=== PATIENT | male | born 1955 | race Caucasian/White ===

== ENCOUNTER 2017-07-21 14:45 | Inpatient (IN) | payer OTHER, MEDICAID ==
[~2017-07-21] VITALS: Ht 175.3 cm; Wt 88.8 kg
[~2017-07-21 14:45] MED LIST: ALBU8.5H8 INH; ASPI81TA30 PO; CLOP75TA33 PO; HYDR-3972 PO; LEVO112T5 PO; METO100T7 PO; NITR0.4T51 SL; QUET25TA PO; TOPI50TA24 PO
[2017-08-05] MEDS ORDERED: METF500T4 PO (15:27)
[2017-08-05 15:58] LABS: BASOPHILS % (AUTO) 0.4 % (0-1); EOSINOPHILS # (AUTO) 0.1 X10'3 (0-0.9); LYMPHOCYTES # (AUTO) 1.4 X10'3 (1.1-4.8); LYMPHOCYTES % (AUTO) 25.2 % (21-51); MEAN CORPUSCULAR HEMOGLOBIN 32.8 PG (27.0-31.0); MEAN CORPUSCULAR HGB CONC 35.1 % (33.0-36.5); MEAN CORPUSCULAR VOLUME 93.3 FL (78-98); MONOCYTES # (AUTO) 0.5 X10'3 (0-0.9); MONOCYTES % (AUTO) 8.4 % (2-12); NEUTROPHILS # (AUTO) 3.6 X10'3 (1.8-7.7); PRE OP HEMATOCRIT 43.1 % (42.0-52.0); PRE OP HEMOGLOBIN 15.1 g/dL (14.0-17.9); PRE OP PLATELET COUNT 109 X10'3 (140-440); RED BLOOD COUNT 4.62 X10'6 (4.70-6.10); RED CELL DISTRIBUTION WIDTH 14.7 % (11.5-14.5)
[2017-08-05 16:14] LABS: ALBUMIN 3.8 G/DL (3.4-5.0); ALBUMIN/GLOBULIN RATIO 0.9 (1.1-1.5); ALKALINE PHOSPHATASE 100 IU/L (46-116); BLOOD UREA NITROGEN 13 MG/DL (7-18); BUN/CREATININE RATIO 14.4 (5.4-32.0); CALCIUM 9.2 MG/DL (8.5-10.1); CHLORIDE 107 MMOL/L (99-107); PRE OP ALT 39 U/L (30-65); PRE OP ANION GAP 9 (8-16); PRE OP AST 52 U/L (10-37); PRE OP BILIRUB, TOTAL 1.3 MG/DL (0.0-1.0); PRE OP GLUCOSE 110 MG/DL (70-104); PRE OP POTASSIUM 3.9 MMOL/L (3.4-5.1); PRE OP SODIUM 141 MMOL/L (135-145); TOTAL CARBON DIOXIDE 24.8 MMOL/L (24-32); eGFR 86 ML/MIN
[2017-08-05 16:27] LABS: PRE OP INR 1.2 INR
[2017-08-11] VITALS (17 sets, daily range): BP systolic 90–133; BP diastolic 55–78
[2017-08-11] MEDS ORDERED: ringers solution, lacted 1,000 ML IV SCH ×2 (05:00→11:05)
[2017-08-11] MEDS ORDERED: DOCUMENT DATE & TIME OF BETA-BLOCKER PO ONE (05:30)
[2017-08-11] MEDS ORDERED: famotidine 20mg tablet PO ONE (05:30)
[2017-08-11] MEDS ORDERED: cefazolin/dext.iso 2gm/50ml 50 ML IV ONE (06:51)
[2017-08-11] MEDS ORDERED: tranexamic acid inj. 1,000 MG in normal saline 100ml IV soln 90 ML IV ONE ×2 (06:55→09:55)
[2017-08-11] MEDS ORDERED: vancomycin/NS 1 GM ADD-VANTAGE 250 ML IV ONE (06:55)
[2017-08-11] MEDS ORDERED: ROPIVAcaine 0.5% (5mg/ml) 30ml vial ONE ×2 (08:30→08:38)
[2017-08-11] MEDS ORDERED: tetracaine 1% (10mg/ml) pres. free inj. ONE (08:31)
[2017-08-11] MEDS ORDERED: fentaNYL/PF 50MCG/1 ML 2ML syringe ONE (08:35)
[2017-08-11] MEDS ORDERED: MIDAZolam 1mg/ml 10ml vial ONE (08:35)
[2017-08-11] MEDS ORDERED: MORPHINE SULFATE/PF 0.5 MG/ML 10ML AMPUL ONE (08:35)
[2017-08-11] MEDS ORDERED: ketorolac trometh. 30mg/ml inj. ONE (08:38)
[2017-08-11] MEDS ORDERED: vancomycin 1,000mg inj ONE (08:38)
[2017-08-11] MEDS ORDERED: labetalol 5mg/ml 20ml inj. IV PRN (11:05)
[2017-08-11] MEDS ORDERED: ondansetron/PF 4mg/2ml inj IV PRN ×3 (11:05→13:30)
[2017-08-11] MEDS ORDERED: hydrALAZINE 20mg/ml inj. IV PRN (11:05)
[2017-08-11] MEDS ORDERED: morphine 2 MG/ML inj. syringe IV PRN ×3 (11:05→17:21)
[2017-08-11] MEDS ORDERED: meperidine/PF 25mg/ml syringe IV PRN ×2 (11:05)
[2017-08-11] MEDS ORDERED: diphenhydrAMINE 50 mg/ml inj IV PRN (11:10)
[2017-08-11] MEDS ORDERED: nitroGLYCERIN 0.4mg SUBLingual tab SL PRN (13:30)
[2017-08-11] MEDS ORDERED: magnesium hydroxide 30ml (MOM) UD suspension PO PRN (13:30)
[2017-08-11] MEDS ORDERED: acetaminophen 325mg tablet PO PRN (13:30)
[2017-08-11] MEDS ORDERED: non-formulary drug (Albuterol Sulfate (Proair Hfa) 2 PUFFS) INH SCH (13:30)
[2017-08-11] MEDS ORDERED: bisacodyl 10mg suppository rectal RC PRN (13:30)
[2017-08-11] MEDS ORDERED: HYDROmorphone 1 mg/ml syringe IV PRN (13:30)
[2017-08-11] MEDS ORDERED: oxyCODONE IR 5mg (immed. release) tablet PO PRN ×2 (13:30)
[2017-08-11] MEDS ORDERED: diphenhydrAMINE 25mg capsule PO PRN ×2 (13:30)
[2017-08-11] MEDS ORDERED: albuterol 2.5 MG/3 ML nebule NEB PRN (13:40)
[2017-08-11] MEDS: acetaminophen 325mg tablet PO SCH ×2 (14:43→20:13)
[2017-08-11] MEDS: ketorolac tromethamine 15mg/ml inj. IV SCH ×2 (14:43→20:14)
[2017-08-11] MEDS: potassium cl 20mEq in 1/2 NS 1,000 ML IV SCH ×2 (14:43→21:27)
[2017-08-11] MEDS: cefazolin 1gm/NS 100mL 100 ML IV SCH (16:13)
[2017-08-11] MEDS ORDERED: tranexamic acid inj. 1,000 MG in normal saline 100ml IV soln 100 ML IV ONE (16:30)
[2017-08-11] MEDS ORDERED: celeCOXIB 100mg capsule PO SCH (20:00)
[2017-08-11] MEDS ORDERED: vancomycin/NS 1 GM ADD-VANTAGE 250 ML IV SCH (20:00)
[2017-08-11] MEDS: metFORMIN 500mg tablet PO SCH (20:13)
[2017-08-11] MEDS ORDERED: HYDROcodone/acetaminophen 10/325mg tab PO PRN (20:30)
[2017-08-11] MEDS: HYDROcodone/acetaminophen 10/325mg tab PO PRN (20:39)
[2017-08-11] MEDS ORDERED: sennosides 8.6mg tablet PO SCH (21:00)
[2017-08-11] MEDS ORDERED: topiramate 25mg tablet PO SCH (21:00)
[2017-08-11] MEDS ORDERED: TOPIRAMATE PO SCH (21:00)
[2017-08-11] MEDS ORDERED: QUEtiapine 25mg tablet PO SCH (21:00)
[2017-08-11] MEDS ORDERED: gabapentin 300mg capsule PO SCH (21:00)
[2017-08-12] MEDS: cefazolin 1gm/NS 100mL 100 ML IV SCH (00:53)
[2017-08-12] MEDS: ketorolac tromethamine 15mg/ml inj. IV SCH ×2 (01:07→08:16)
[2017-08-12] MEDS: HYDROcodone/acetaminophen 10/325mg tab PO PRN ×2 (01:10→05:13)
[2017-08-12] MEDS: potassium cl 20mEq in 1/2 NS 1,000 ML IV SCH (01:17)
[2017-08-12 02:32] VITALS: BP 92/52
[2017-08-12 05:00] VITALS: BP 104/65
[2017-08-12 06:14] LABS: BASOPHILS % (AUTO) 0.4 % (0-1); EOSINOPHILS % (AUTO) 0.7 % (0-6); HEMATOCRIT 33.2 % (42.0-52.0); HEMOGLOBIN 11.7 g/dl (14.0-17.9); LYMPHOCYTES # (AUTO) 0.4 X10'3 (1.1-4.8); LYMPHOCYTES % (AUTO) 7.2 % (21-51); MEAN CORPUSCULAR HEMOGLOBIN 32.9 PG (27.0-31.0); MEAN CORPUSCULAR HGB CONC 35.2 % (33.0-36.5); MEAN CORPUSCULAR VOLUME 93.5 FL (78-98); MEAN PLATELET VOLUME 8.6 FL (7.4-10.4); MONOCYTES # (AUTO) 0.3 X10'3 (0-0.9); MONOCYTES % (AUTO) 4.9 % (2-12); NEUTROPHILS # (AUTO) 5.3 X10'3 (1.8-7.7); NEUTROPHILS % (AUTO) 86.8 % (42-75); PLATELET COUNT 87 X10'3 (140-440); RED BLOOD COUNT 3.55 X10'6 (4.70-6.10); RED CELL DISTRIBUTION WIDTH 14.6 % (11.5-14.5); WHITE BLOOD COUNT 6.1 X10'3 (4.5-11.0)
[2017-08-12 06:32] LABS: ANION GAP 9 (8-16); CHLORIDE 106 MMOL/L (99-107); POTASSIUM 4.4 MMOL/L (3.5-5.1); SODIUM 139 MMOL/L (135-145); TOTAL CARBON DIOXIDE 23.9 MMOL/L (24-32)
[2017-08-12] MEDS ORDERED: metoprolol succinate 25mg (24-HOUR) SR. Tablet PO SCH (08:00)
[2017-08-12] MEDS ORDERED: clopidogrel 75mg tablet PO SCH (08:00)
[2017-08-12] MEDS ORDERED: levoTHYROXINE 112mcg tablet PO SCH (08:00)
[2017-08-12] MEDS ORDERED: non-formulary drug (Metoprolol Succinate* (Toprol Xl*) 1 TAB) PO SCH (08:00)
[2017-08-12] MEDS: metFORMIN 500mg tablet PO SCH (08:16)
[2017-08-12] MEDS ORDERED: aspirin 81mg tab.chew PO SCH (08:30)
[2017-08-12] MEDS ORDERED: aspirin 325mg tablet PO SCH (08:30)
[2017-08-12 10:00] VITALS: BP 97/48
[2017-08-12] MEDS ORDERED: HYDR-3972 PO (10:53)
[2017-08-13] MEDS ORDERED: acetaminophen 325mg tablet PO PRN (13:30)
[2017-08-15] MEDS ORDERED: HYDR-565 PO (22:20)
== END 2017-08-12 12:20 | disposition home or self-care (01) | DRG 470 ==
LOC: PAS IN 08-11 06:41 → ORTHO 4S 08-11 14:34 → EDSTATUS 08-11 15:15
PROVIDERS: ADMIT Orthopaedic Surgery; ATTEND Orthopaedic Surgery
PROC: 3E0T3BZ Introduction of Anesthetic Agent into Peripheral Nerves and Plexi, Percutaneous Approach (ICD-10-PCS; 2017-08-11)
PROC: 8E0YXBZ Computer Assisted Procedure of Lower Extremity (ICD-10-PCS; 2017-08-11)
PROC: 8E0Y0CZ Robotic Assisted Procedure of Lower Extremity, Open Approach (ICD-10-PCS; 2017-08-11)
PROC: 0SRD0JZ Replacement of Left Knee Joint with Synthetic Substitute, Open Approach (ICD-10-PCS; principal; 2017-08-11 09:55)
DX: M17.12 Unilateral primary osteoarthritis, left knee (principal); D62 Acute posthemorrhagic anemia; E03.9 Hypothyroidism, unspecified; E11.9 Type 2 diabetes mellitus without complications; I25.10 Atherosclerotic heart disease of native coronary artery without angina pectoris; J44.9 Chronic obstructive pulmonary disease, unspecified; F32.9 Major depressive disorder, single episode, unspecified; F41.9 Anxiety disorder, unspecified; G89.29 Other chronic pain; M54.9 Dorsalgia, unspecified; F17.200 Nicotine dependence, unspecified, uncomplicated; I25.2 Old myocardial infarction; Z95.5 Presence of coronary angioplasty implant and graft; Z88.0 Allergy status to penicillin; Z88.8 Allergy status to other drugs, medicaments and biological substances; Z79.84 Long term (current) use of oral hypoglycemic drugs; Z79.899 Other long term (current) drug therapy; Z79.01 Long term (current) use of anticoagulants; Z83.3 Family history of diabetes mellitus; Z82.49 Family history of ischemic heart disease and other diseases of the circulatory system; Z80.9 Family history of malignant neoplasm, unspecified
CPT/HCPCS: 36415; 80051; 80053; 82948; 85025; 85610; 85730; 87070; 97110; 97116; 97161; 97530; A6455; A7000; C1713; C1758; C1776; J0690; J1885; J2250; J2274; J2405; J2795; J3010; J3370; J7030; J7120

== ENCOUNTER 2017-09-01 19:48 | Emergency (ER) | payer OTHER, MEDICAID ==
[~2017-09-01] VITALS: Ht 175.3 cm; Wt 88.6 kg
[~2017-09-01 19:48] MED LIST changes: +METF500T4 PO
[2017-09-01] MEDS ORDERED: ondansetron/PF 4mg/2ml inj IV ONE (21:15)
[2017-09-01] MEDS ORDERED: morphine 4 MG/ML inj SYRINge IV ONE (21:15)
[2017-09-01 21:50] LABS: BASOPHILS % (AUTO) 0.8 % (0-1); EOSINOPHILS # (AUTO) 0.1 X10'3 (0-0.9); EOSINOPHILS % (AUTO) 2.1 % (0-6); HEMOGLOBIN 11.1 g/dl (14.0-17.9); LYMPHOCYTES # (AUTO) 1.5 X10'3 (1.1-4.8); LYMPHOCYTES % (AUTO) 26.4 % (21-51); MEAN CORPUSCULAR HEMOGLOBIN 32.8 PG (27.0-31.0); MEAN CORPUSCULAR HGB CONC 34.7 % (33.0-36.5); MEAN CORPUSCULAR VOLUME 94.6 FL (78-98); MONOCYTES # (AUTO) 0.5 X10'3 (0-0.9); MONOCYTES % (AUTO) 9.5 % (2-12); NEUTROPHILS # (AUTO) 3.4 X10'3 (1.8-7.7); NEUTROPHILS % (AUTO) 61.2 % (42-75); PLATELET COUNT 231 X10'3 (140-440); RED BLOOD COUNT 3.38 X10'6 (4.70-6.10); RED CELL DISTRIBUTION WIDTH 15.4 % (11.5-14.5); WHITE BLOOD COUNT 5.6 X10'3 (4.5-11.0)
[2017-09-01 22:08] LABS: ALANINE AMINOTRANSFERASE 27 U/L (12-78); ALBUMIN 3.4 G/DL (3.4-5.0); ALBUMIN/GLOBULIN RATIO 0.8 (1.1-1.5); ALKALINE PHOSPHATASE 103 IU/L (46-116); ANION GAP 10 (8-16); ASPARTATE AMINO TRANSFERASE 34 U/L (10-37); BLOOD UREA NITROGEN 13 MG/DL (7-18); BUN/CREATININE RATIO 13.8 (5.4-32.0); CALCIUM 8.9 MG/DL (8.5-10.1); CHLORIDE 107 MMOL/L (99-107); CREATININE 0.94 MG/DL (0.60-1.10); GLUCOSE 151 MG/DL (70-104); POTASSIUM 3.6 MMOL/L (3.5-5.1); SODIUM 142 MMOL/L (135-145); TOTAL PROTEIN 7.9 G/DL (6.4-8.2); eGFR 82 ML/MIN
[2017-09-01] MEDS ORDERED: ketorolac trometh. 30mg/ml inj. IV ONE (22:25)
[2017-09-01] MEDS ORDERED: CLIN-80 PO (22:48)
[2017-09-01 23:06] VITALS: BP 132/72
== END 2017-09-01 23:08 | disposition home or self-care (01) ==
LOC: ER 19:49
DX: L03.116 Cellulitis of left lower limb (principal); I25.10 Atherosclerotic heart disease of native coronary artery without angina pectoris; I25.2 Old myocardial infarction; E11.9 Type 2 diabetes mellitus without complications; F17.200 Nicotine dependence, unspecified, uncomplicated; Z98.890 Other specified postprocedural states; Z96.652 Presence of left artificial knee joint; Z86.19 Personal history of other infectious and parasitic diseases; Z88.5 Allergy status to narcotic agent; Z88.0 Allergy status to penicillin; Z88.8 Allergy status to other drugs, medicaments and biological substances; Z79.82 Long term (current) use of aspirin; Z79.84 Long term (current) use of oral hypoglycemic drugs; Z79.899 Other long term (current) drug therapy
CPT/HCPCS: 36415; 73552; 73564; 73590; 80053; 85025; 96374; 96375; 99285; J1885; J2270; J2405

== ENCOUNTER 2017-09-18 19:01 | Emergency (ER) | payer OTHER, MEDICAID ==
[~2017-09-18] VITALS: Ht 175.3 cm; Wt 83.0 kg
[~2017-09-18 19:01] MED LIST changes: +CLIN-80 PO
[2017-09-18] MEDS ORDERED: HYDROmorphone 2mg tablet PO ONE (21:20)
[2017-09-18 21:55] LABS: BASOPHILS % (AUTO) 0.5 % (0-1); EOSINOPHILS # (AUTO) 0.1 X10'3 (0-0.9); EOSINOPHILS % (AUTO) 1.9 % (0-6); HEMATOCRIT 33.5 % (42.0-52.0); HEMOGLOBIN 11.5 g/dl (14.0-17.9); LYMPHOCYTES # (AUTO) 1.5 X10'3 (1.1-4.8); LYMPHOCYTES % (AUTO) 28.7 % (21-51); MEAN CORPUSCULAR HEMOGLOBIN 32.3 PG (27.0-31.0); MEAN CORPUSCULAR HGB CONC 34.3 % (33.0-36.5); MEAN CORPUSCULAR VOLUME 94.2 FL (78-98); MEAN PLATELET VOLUME 7.3 FL (7.4-10.4); MONOCYTES # (AUTO) 0.5 X10'3 (0-0.9); MONOCYTES % (AUTO) 9.9 % (2-12); PLATELET COUNT 136 X10'3 (140-440); RED BLOOD COUNT 3.56 X10'6 (4.70-6.10); RED CELL DISTRIBUTION WIDTH 14.2 % (11.5-14.5); WHITE BLOOD COUNT 5.1 X10'3 (4.5-11.0)
[2017-09-18 22:07] LABS: INR 1.1 INR; PARTIAL THROMBOPLASTIN TIME 34 SECONDS (22-32); PROTHROMBIN TIME 11.8 SECONDS (9.0-12.0)
[2017-09-18 22:13] LABS: ALANINE AMINOTRANSFERASE 32 U/L (12-78); ALBUMIN 3.3 G/DL (3.4-5.0); ALBUMIN/GLOBULIN RATIO 0.8 (1.1-1.5); ALKALINE PHOSPHATASE 99 IU/L (46-116); ANION GAP 10 (8-16); ASPARTATE AMINO TRANSFERASE 38 U/L (10-37); BILIRUBIN,TOTAL 0.8 MG/DL (0.1-1.0); BLOOD UREA NITROGEN 11 MG/DL (7-18); BUN/CREATININE RATIO 12.8 (5.4-32.0); CALCIUM 8.9 MG/DL (8.5-10.1); CHLORIDE 105 MMOL/L (99-107); CREATININE 0.86 MG/DL (0.60-1.10); GLUCOSE 133 MG/DL (70-104); POTASSIUM 3.5 MMOL/L (3.5-5.1); SODIUM 140 MMOL/L (135-145); TOTAL CARBON DIOXIDE 24.7 MMOL/L (24-32); TOTAL PROTEIN 7.7 G/DL (6.4-8.2); eGFR > 90 ML/MIN
[2017-09-19 00:25] VITALS: BP 122/71
== END 2017-09-19 00:28 | disposition home or self-care (01) ==
LOC: ER 19:03
DX: M25.462 Effusion, left knee (principal); I25.10 Atherosclerotic heart disease of native coronary artery without angina pectoris; I25.2 Old myocardial infarction; J43.9 Emphysema, unspecified; E11.9 Type 2 diabetes mellitus without complications; Z98.890 Other specified postprocedural states; Z88.0 Allergy status to penicillin; Z79.82 Long term (current) use of aspirin; Z79.4 Long term (current) use of insulin
CPT/HCPCS: 36415; 80053; 82948; 84145; 85025; 85610; 85730; 93971; 99285